=== PATIENT | male | born 1990 | race Caucasian/White ===

== ENCOUNTER 2023-11-18 16:29 | Emergency (ER) | payer MEDICAID ==
[~2023-11-18] VITALS: Ht 190.5 cm; Wt 81.6 kg
[2023-11-18 16:57] VITALS: BP_SYST 130; PULSE 72; RESP 17; TEMP 98.4; O2SAT 95
[2023-11-18] MEDS ORDERED: DOXY100C5 PO (22:48)
[2023-11-18] MEDS ORDERED: IBUP-1969 PO (22:48)
[2023-11-18 22:55] VITALS: BP_SYST 130; PULSE 72; RESP 17; TEMP 98.4; O2SAT 95
== END 2023-11-18 22:55 | disposition home or self-care (01) ==
LOC: SED 16:29
DX: L73.2 Hidradenitis suppurativa (principal); Z79.899 Other long term (current) drug therapy
CPT/HCPCS: 99284